=== PATIENT | female | born 1990 | race Two or more races ===

== ENCOUNTER 2020-11-19 10:13 | Emergency (ER) | payer OTHER ==
[~2020-11-19] VITALS: Ht 154.9 cm; Wt 72.7 kg
[2020-11-19] MEDS ORDERED: ALBUTEROL SULFATE HFA 90 MCG/PUFF 8 GM INHALER IH ONE (11:00)
[2020-11-19 11:36] LABS: COVID AG,FIA SOURCE NASAL SWAB
[2020-11-19 13:16] VITALS: BP 114/70
== END 2020-11-19 13:16 | disposition home or self-care (01) ==
LOC: EMS 10:26
DX: J40 Bronchitis, not specified as acute or chronic (principal); Z20.822 Contact with and (suspected) exposure to COVID-19
CPT/HCPCS: 71045; 87426; 94640; 99284; U0003; J3535